=== PATIENT | female | born 1990 | race Hispanic/Latino ===

== ENCOUNTER 2020-04-02 14:26 | Emergency (ER) | payer OTHER ==
[~2020-04-02] VITALS: Ht 180.3 cm; Wt 92.1 kg
[2020-04-02] MEDS ORDERED: ONDANSETRON HCL INJ 2MG/ML 2ML 2 MG/ML VIAL IV STA (14:47)
[2020-04-02] MEDS ORDERED: ONDANSETRON HCL INJ 2MG/ML 2ML 2 MG/ML VIAL ONE (14:50)
[2020-04-02] MEDS ORDERED: LIDOCAINE VISC 2% SOLN 15 ML UDC ONE (14:52)
[2020-04-02] MEDS ORDERED: MAGNESIUM/ALUMINUM/SIMETHICONE 30 ML UDC ONE (14:52)
[2020-04-02] MEDS ORDERED: BELLADONNA ALK/PHENOBARBITAL 5 ML UDC ONE (14:52)
--- NOTE | 2020-04-02 15:08 | Emergency Department Note ---
History of Present Illnes History of Present Illness Chief Complaint: Abdominal Complaints History of Present Illness This is a 30 year old female with epigastric pain X 3hrs. Onset 10 min after taking several vitamins on empty stomach. Similar sx before with GERD, but this episode is much worse. No radiation. +N, but not now. no vomiting. No fever, no chills. No dysuria. Took OTC pepcid and Tums and did not help. Historian: Patient Arrival Mode: Car Director Of Development Required: No Onset (how long ago): hour(s) (3) Location: epigastric Quality: burning Radiation: Reports non-radiation Severity: unable to specify Onset quality: unable to specify Duration (how long): hour(s) (3) Chronicity: recurrent Context: Denies recent illness, Denies trauma/injury Relieving factors: none Exacerbating factors: other (PO vitamins per above) Associated symptoms: Denies chest pain, Denies cough, Denies nausea/vomiting, Denies rash Treatments prior to arrival: other (above) Past Medical/Family History Physician Review I have reviewed the patient's past medical and family history. Any updates have been documented here. Past Medical History Recent Fever: No Clinical Suspicion of Infectio: No New/Unexplained Change in Ment: No Past Medical History: None Past Surgical History: None Social History Any Illegal Drug Use: No Physically hurt or threatened: No Other Last Tetanus: UTD Review of Systems Review of Systems Constitutional: Denies chills, Denies fever EENTM: Denies nose congestion, Denies throat pain Cardiovascular: Denies chest pain, Denies palpitations Respiratory: Denies cough, Denies dyspnea Gastrointestinal: Reports as per HPI, Reports abdominal pain Genitourinary: Denies dysuria Musculoskeletal: Denies back pain Integumentary: Denies rash Neurological: Denies headache Endocrine: Denies increased urination Hematological/Lymphatic: Denies easy bruising Physical Exam Related Data Allergies: Coded Allergies: No Known Allergies (Unverified , 06/08/19) Triage Vital Signs Vital Signs Date Time Temp Pulse Resp B/P (MAP) Pulse Ox O2 Delivery O2 Flow Rate FiO2 04/02/20 14:39 98.6 83 18 143/77 100 Room Air Physical Exam CONSTITUTIONAL Constitutional: Present well-developed, Present well-nourished HENT HENT: Present normocephalic, Present atraumatic, Present oropharynx clear/moist, Present nose normal HENT L/R: Present left ext ear normal, Present right ext ear normal EYES Eyes: Reports PERRL, Reports conjunctivae normal NECK Neck: Present ROM normal PULMONARY Pulmonary: Present effort normal, Present breath sounds normal CARDIOVASCULAR Cardiovascular: Present regular rhythm, Present heart sounds normal, Present capillary refill normal, Present normal rate GASTROINTESTINAL Abdominal: Present soft, Present nontender, Present bowel sounds normal; Absent distension, Absent guarding, Absent rebound, Absent left CVA te nderness, Absent right CVA tenderness GENITOURINARY Genitourinary: Present exam deferred SKIN Skin: Present warm, Present dry MUSCULOSKELETAL Musculoskeletal: Present ROM normal NEUROLOGICAL Neurological: Present alert, Present oriented x 3, Present no gross motor or sensory deficits PSYCHOLOGICAL Psychological: Present mood/affect normal, Present judgement normal Results Laboratory Laboratory comments UPT negative, UA negative Assessment & Plan Medical Decision Making MDM DDx includes, but not limited to Cholylithisis, Cholcystitis, AAA, pancreatitis, ACS, pneumothrax, PE, SBO, gastritis, GERD, esophagitis, PUD, kidney stone, pylonephritis, appendicitis Reassessment Reassessment Pain gone after GI cocktail Assessment & Plan Final Impression: (1) GERD (gastroesophageal reflux disease) Depart Disposition: HOME, SELF-CARE Last Vital Signs Date Time Temp Pulse Resp B/P (MAP) Pulse Ox O2 Delivery O2 Flow Rate FiO2 04/02/20 14:39 98.6 83 18 143/77 100 Room Air Medications in the ED Ondansetron HCl 4 mg STK-MED ONCE .ROUTE ; Start 04/02/20 at 14:50; Stop 04/02/20 at 14:46; Status DC Lidocaine HCl 15 ml STK-MED ONCE .ROUTE ; Start 04/02/20 at 14:52; Stop 04/02/20 at 14:46; Status DC Belladonna Alkaloids/ Phenobarbital 10 ml STK-MED ONCE .ROUTE ; Start 04/02/20 at 14:52; Stop 04/02/20 at 14:46; Status DC Magnesium Aluminum Silicate 30 ml STK-MED ONCE .ROUTE ; Start 04/02/20 at 14:52; Stop 04/02/20 at 14:46; Status DC KATHRINE PECK MD Apr 02, 2020 14:55
--- OUTSIDE RECORDS SUMMARY | 2020-04-02 15:13 | XMS REPORT | Continuity of Care Document ---
Author Author [facility] Organization [facility] Address [address] [place] [address] Phone Unavailable Care Team Providers Care Upstairs Maid Name Role Phone Unavailable Unavailable Problems This patient has no known problems. Allergies, Adverse Reactions, Alerts This patient has no known allergies or adverse reactions. Medications This patient has no known medications. Procedures This patient has no known procedures. Results Test Description Test Time Test Comments Results Result Comments Source URINE DIPSTICK Test Item Leukocytes (test code = 17140) Neg Nitrite (test code = 919087) Negative Urobilinogen (test code = 569954) 1 Protein (test code = 145456) Neg pH (test code = 2657033) 6 Blood (test code = 0572895) Neg Specific Melissa => (test code = 7144466) 1.030 Ketone (test code = 6521361) Neg Bilirubin (test code = 9034698) Neg Glucose (test code = 5363551) NEGATIVE TEST, URINE* Test Item Value Reference Range Interpretation Comments Test, Urine (test code = 874019) Negative URINALYSIS, ROUTINE* Test Item Value Reference Range Interpretation Comments WBC (test code = 977242) 6-10 /HPF 0-5 A RBC (test code = 785903) 3-10 /HPF 0-2 A Epithelial Cells (non renal) (test code = 079076) >10 /HPF 0-10 A Casts (test code = 462726) PRESENT /LPF NONE SEEN A Crystals (test code = 032357) PRESENT N/A A Bacteria (test code = 068771) MANY NONE SEEN/FEW A Appearance (test code = 254471) CLOUDY CLEAR A WBC Esterase (test code = 610482) 1+ NEGATIVE A Occult Blood (test code = 778313) 3+ NEGATIVE A Cast Type (test code = 449051) HYALINE CASTS N/A Crystal Type (test code = 844635) CALCIUM OXALATE N/A Mucus Threads (test code = 568274) PRESENT NOT ESTAB. Microscopic Examination (test code = 990600) SEE BELOW: MICROSCOPIC WAS INDICATED AND WAS PERFORMED. Specific Melissa (test code = 235560) 1.025 1.005-1.030 pH (test code = 501825) 7.0 5.0-7.5 Urine-Color (test code = 729471) YELLOW YELLOW Protein (test code = 307172) NEGATIVE NEGATIVE/TRACE Glucose (test code = 552610) NEGATIVE NEGATIVE Ketones (test code = 271680) NEGATIVE NEGATIVE Bilirubin (test code = 617181) NEGATIVE NEGATIVE Urobilinogen,Semi-Qn (test code = 664400) 0.2 MG/DL 0.2-1.0 Nitrite, Urine (test code = 014373) NEGATIVE NEGATIVE TEST, URINE* Test Item Value Reference Range Interpretation Comments Test, Urine (test code = 528349) Negative HEMOGLOBIN A1C* Test Item Value Reference Range Interpretation Comments HEMOGLOBIN A1C (test code = 946505) 5.3 % PAP IG, RFX HPV ALL PTH* Test Item Value Reference Range Interpretation Comments DIAGNOSIS: (test code = 621777) COMMENT A EPITHELIAL CELL ABNORMALITY.ATYPICAL SQUAMOUS CELLS OF UNDETERMINED SIGNIFICANCE. Clinician provided ICD10: (test code = 697341) COMMENT Z01.419 Pathologist provided ICD10: (test code = 207786) COMMENT R87.610 HPV, high-risk (test code = 223214) NEGATIVE NEGATIVE THIS HIGH-RISK HPV TEST DETECTS THIRTEEN HIGH-RISK TYPES(16/18/31/33/35/39/45/51/52/56/58/59/68) WITHOUT DIFFERENTIATION.. Specimen adequacy: (test code = 471342) COMMENT SATISFACTORY FOR EVALUATION. ENDOCERVICAL AND/OR SQUAMOUS METAPLASTICCELLS (ENDOCERVICAL COMPONENT) ARE PRESENT. Performed by: (test code = 177361) COMMENT SILKE LUQUE, SHOCK ABSORPTION FLOOR LAYER (ASCP) Electronically signed by: (test code = 268371) COMMENT REKHA RUTHERFORD MD, PATHOLOGIST [id number] (test code = 919303) . Note: (test code = 687086) COMMENT T HE PAP SMEAR IS A SCREENING TEST DESIGNED TO AID IN THE DETECTION OFPREMALIGNANT AND MALIGNANT CONDITIONS OF THE UTERINE CERVIX. IT IS NOT ADIAGNOSTIC PROCEDURE AND SHOULD NOT BE USED THE SOLE MEANS OF DETECTINGCERVICAL CANCER. BOTH FALSE-POSITIVE AND FALSE-NEGATIVE REPORTS DO OCCUR.. [id number] (test code = 817824) COMMENT SEE BELOW FOR HPV TESTING RESULTS.. Test Methodology: (test code = R67198) COMMENT THIS LIQUID BASED THINPREP(R) PAP TEST WAS SCREENED WITH THEUSE OF AN IMAGE GUIDED SYSTEM. Comment Electronically Received 16-JAN-17: NO. OF CONTAINERS..01THINPREP VIAL Reflex:CHLAMYDIA/GC AMPLIFICATION* Test Item Value Reference Range Interpretation Comments CHLAMYDIA TRACHOMATIS, ZINA (test code = 122192) NEGATIVE NEGATI VE NEISSERIA GONORRHOEAE, ZINA (test code = 003426) NEGATIVE NEGATI VE TEST, URINE* Test Item Value Reference Range Interpretation Comments Test, Urine (test code = 235169) Negative
[2020-04-02] MEDS ORDERED: DONNATAL/LIDOCAINE/MAALOX 30 ML SUSP PO ONE (15:30)
== END 2020-04-02 15:12 | disposition home or self-care (01) ==
LOC: FSED 14:38
DX: K21.9 Gastro-esophageal reflux disease without esophagitis (principal); R10.13 Epigastric pain
CPT/HCPCS: 81003; 81025; 99284; J2405

== ENCOUNTER 2020-07-24 14:25 | Emergency (ER) | payer OTHER ==
[~2020-07-24] VITALS: Ht 180.3 cm; Wt 104.3 kg
[2020-07-24] MEDS ORDERED: SODIUM CHLORIDE 0.9% 1000ML 1,000 ML IV STA (14:52)
[2020-07-24] MEDS ORDERED: SODIUM CHLORIDE 0.9% 1000ML 1,000 ML ONE (15:17)
[2020-07-24 16:18] VITALS: BP 127/73
== END 2020-07-24 16:22 | disposition home or self-care (01) ==
LOC: FSED 15:00
DX: R42 Dizziness and giddiness (principal); E86.0 Dehydration
CPT/HCPCS: 80053; 80307; 81003; 81025; 85025; 93005; 99284; J7030

== ENCOUNTER 2020-08-28 20:07 | Emergency (ER) | payer OTHER ==
[~2020-08-28] VITALS: Ht 180.3 cm; Wt 104.3 kg
[2020-08-28] MEDS ORDERED: FAMOTIDINE20 MG PO (22:40)
== END 2020-08-28 22:37 | disposition home or self-care (01) ==
LOC: FSED 20:25
DX: R07.89 Other chest pain (principal); K21.9 Gastro-esophageal reflux disease without esophagitis
CPT/HCPCS: 71046; 80053; 81003; 82553; 84484; 85025; 93005; 99283